=== PATIENT | female | born 1960 | race Caucasian/White ===

== ENCOUNTER 2021-01-18 19:37 | Emergency (ER) | payer MEDICARE ==
[~2021-01-18] VITALS: Ht 152.4 cm; Wt 99.8 kg
[2021-01-18 19:42] VITALS: BP_SYST 102
[2021-01-18] MEDS ORDERED: fentaNYL CITRATE/PF 100 MCG/2 ML AMP IM ONE ×2 (20:00→20:45)
[2021-01-18] MEDS ORDERED: LORazepam 2 MG/ML VIAL IM ONE ×2 (20:00→20:45)
[2021-01-18 22:15] VITALS: BP_SYST 124
== END 2021-01-18 22:15 | disposition home or self-care (01) ==
LOC: SED 19:37
DX: G89.29 Other chronic pain (principal); R25.2 Cramp and spasm; M79.661 Pain in right lower leg; Z88.2 Allergy status to sulfonamides
CPT/HCPCS: 96372; 99284